=== PATIENT | male | born 1990 | race Caucasian/White ===

== ENCOUNTER 2019-07-13 14:13 | Emergency (ER) | payer BC, OTHER ==
[~2019-07-13] VITALS: Ht 177.8 cm; Wt 63.5 kg
[2019-07-13 14:19] VITALS: BP_SYST 107
--- NOTE | 2019-07-13 14:35 | NUR ---
Patient presented with C/O left testicle pain & blood in stool. Patient A&O x4, ambulatory to ER, pain 07/30, denies N/V/D, denies pain with urination. Patient states left testicle pain started 1 week ago, today left testicle became slightly swollen and pain increased prompting ER visit today. Patient states yesterday after stooling he noticed small amount of blood on toilet paper after wiping. Patient denies other health hx and denies taking medication.
[2019-07-13 14:52] LABS: BILIRUBIN,URINE NEGATIVE (NEGATIVE); BLOOD, URINE NEGATIVE (NEGATIVE); CLARITY/URINE CLEAR (CLEAR); COLOR,URINE YELLOW (YELLOW); GLUCOSE,URINE NEGATIVE (NEGATIVE); KETONES,URINE NEGATIVE (NEGATIVE); LEUKOCYTE ESTERASE ,URINE NEGATIVE (NEGATIVE); NITRITE, URINE NEGATIVE (NEGATIVE); PH,URINE 5.5 (5.0-8.0); PROTEIN URINE NEGATIVE (NEGATIVE); UROBILINOGEN,URINE 0.2 (0.2-1.0)
--- NOTE | 2019-07-13 15:03 | NUR ---
ER Dr. Restrepo at bedside examining patient.
--- NOTE | 2019-07-13 15:05 | NUR ---
Patient to radiology with staff via wheelchair
[2019-07-13 15:15] LABS: BASOPHILS % (AUTO) 0.2 % (0.0-2.0); EOSINOPHILS # (AUTO) 0.2 K/uL (0.0-0.4); EOSINOPHILS % (AUTO) 1.8 % (0.0-4.0); HEMATOCRIT 40.8 % (36-54); HEMOGLOBIN 13.9 g/dL (14.0-18.0); LYMPHOCYTES # (AUTO) 1.6 K/uL (1.0-5.5); LYMPHOCYTES % (AUTO) 14.8 % (20.5-51.5); MEAN CORPUSCULAR HEMOGLOBIN 31 pg (27-31); MEAN CORPUSCULAR HGB CONC 34 % (32-36); MEAN CORPUSCULAR VOLUME 92 fL (79.0-98.0); MONOCYTES # (AUTO) 0.8 K/uL (0.0-1.0); MONOCYTES % (AUTO) 7.6 % (1.7-9.3); NEUTROPHILS # (AUTO) 8.1 K/uL (1.8-7.7); NEUTROPHILS % (AUTO) 75.6 % (40.0-70.0); PLATELET COUNT (AUTO) 233 K/uL (130-430); RED BLOOD CELL COUNT(AUTO) 4.44 MIL/uL (4.2-6.2); RED CELL DISTRIBUTION WIDTH 12.5 % (9.0-15.0); WHITE BLOOD COUNT (AUTO) 10.7 K/uL (4.8-10.8)
[2019-07-13 15:22] LABS: CALCIUM 8.4 mg/dL (8.4-11.0); CREATININE 1.07 mg/dL (0.55-1.30); POTASSIUM 3.6 mmol/L (3.5-5.1)
[2019-07-13 15:27] LABS: INR 1.1 (0.80-1.20); PROTHROMBIN TIME 10.8 SECS (9.5-12.5)
[2019-07-13 15:36] LABS: ALBUMIN 3.4 g/dL (3.4-4.8); TOTAL BILIRUBIN 0.4 mg/dL (0.0-1.0)
[2019-07-13] MEDS ORDERED: LEVOFLOXACIN 500 MG/D5W 100 ML IV ONE (15:45)
--- NOTE | 2019-07-13 16:25 | NUR ---
ER Dr. Restrepo at bedside explaining results to patient.
[2019-07-13 17:02] VITALS: BP_SYST 104
--- NOTE | 2019-07-13 17:02 | NUR ---
Patient given written and verbal discharge instructions and verbalizes understanding. ER MD discussed with patient the results and treatment provided. Patient in stable condition. ID arm band removed. IV catheter removed intact and dressing applied, no active bleeding. Rx Motrin and Cipro given. Patient educated on pain management and to follow up with PMD. Pain Scale 0. Opportunity for questions provided and answered. Medication side effect fact sheet provided.
[2019-07-16 00:06] LABS: CHLAMYDIA TRACHOMATIS NAA Negative (Negative); NEISSERIA GONORRHOEAE NAA Negative (Negative)
== END 2019-07-13 17:02 | disposition home or self-care (01) ==
LOC: SED 14:13
DX: N45.1 Epididymitis (principal); Z88.0 Allergy status to penicillin
CPT/HCPCS: 36415; 76870; 80053; 81003; 85025; 85610; 85730; 87040; 87491; 87591; 96365; 99284; J1956

== ENCOUNTER → 2020-11-01 | Emergency (ER) | payer SELFPAY ==
[~2020-11-01] VITALS: Ht 177.8 cm; Wt 61.2 kg
[2020-11-01 16:58] VITALS: BP_SYST 130
--- NOTE | 2020-11-01 17:03 | NUR ---
Patient triaged and placed in waiting room. VSS and patient appears in no acute distress at this time. Awaiting available bed, and MD notified of need for MSE.
== END | disposition still patient (30) ==
LOC: SED 16:58
DX: K64.9 Unspecified hemorrhoids (principal); Z53.21 Procedure and treatment not carried out due to patient leaving prior to being seen by health care provider

== ENCOUNTER 2023-02-19 14:20 | Emergency (ER) | payer SELFPAY ==
[~2023-02-19] VITALS: Ht 177.8 cm; Wt 63.5 kg
[~2023-02-19 14:20] MED LIST: HYDR-3921 PO; IBUP-1969 PO; NEO/3.5O LEFT EYE
[2023-02-19 14:28] VITALS: BP_SYST 133
[2023-02-19 16:16] VITALS: BP_SYST 116
== END 2023-02-19 16:16 | disposition home or self-care (01) ==
LOC: SED 14:20
DX: S23.41XA Sprain of ribs, initial encounter (principal); Z88.0 Allergy status to penicillin; Z79.899 Other long term (current) drug therapy; X50.0XXA Overexertion from strenuous movement or load, initial encounter; Y93.89 Activity, other specified; Y92.89 Other specified places as the place of occurrence of the external cause; Y99.8 Other external cause status
CPT/HCPCS: 71100; 99283